=== PATIENT | male | born 1950 | race Caucasian/White ===

== ENCOUNTER → 2018-03-31 | Day surgery (SDC) | payer BC, MEDICARE ==
[2018-03-30 15:48] LABS: BASOPHILS % 0.5 % (0.0-1.0); EOSINOPHILS # (AUTO) 0.1 (0.0-0.4); HEMATOCRIT 46.2 % (38.2-49.6); HEMOGLOBIN 15.1 g/dL (14.0-18.0); LYMPHOCYTES # (AUTO) 1.8 (1.0-3.2); LYMPHOCYTES % 23.7 % (18.0-39.1); MEAN CORPUSCULAR HEMOGLOBIN 28.5 pg (28-32); MEAN CORPUSCULAR HGB CONC 32.7 g/dL (31-35); MEAN CORPUSCULAR VOLUME 87.2 fL (81-99); MONOCYTES # (AUTO) 0.7 (0.2-0.8); MONOCYTES % 9.7 % (4.4-11.3); NEUTROPHILS # (AUTO) 4.9 (2.1-6.9); NEUTROPHILS % 64.6 % (38.7-80.0); PLATELET COUNT 243 x10e3/uL (140-360)
[2018-03-30 16:04] LABS: ANION GAP 13.2 mmol/L (8-16); BLOOD UREA NITROGEN 14 mg/dL (7-26); BUN/CREATININE RATIO 16 (6-25); CALCIUM 8.9 mg/dL (8.4-10.2); CARBON DIOXIDE 27 mmol/L (22-29); CHLORIDE 98 mmol/L (98-107); EST GLOMERULAR FILTRATION RATE > 60 ML/MIN (60-); GLUCOSE 150 mg/dL (74-118); POTASSIUM 4.2 mmol/L (3.5-5.1); SODIUM 134 mmol/L (136-145)
--- NOTE | 2018-03-30 16:09 | Diagnostic Imaging Report ---
EXAMINATION: CHEST 2 VIEWS INDICATION: Enlarged prostate. Preop COMPARISON: None FINDINGS: TUBES and LINES: None. LUNGS: The lungs are hypoinflated. Mild chronic appearing changes in the lungs. There is no evidence of pneumonia or pulmonary edema. PLEURA: No pleural effusion or pneumothorax. HEART AND MEDIASTINUM: Tortuous thoracic aorta. Large hiatal hernia. The heart is normal in size. BONES AND SOFT TISSUES: No acute osseous lesion. Soft tissues are unremarkable. UPPER ABDOMEN: No free air under the diaphragm. IMPRESSION: Tortuous thoracic aorta. Large hiatal hernia. Signed by: Dr. Andrae Brantley M.D. on 03/30/2018 4:06 PM
[~2018-03-31] MED LIST: B COMPLETE1 EACH PO; BELLADONNA/OPIUM 60 MG SUPP PR ONE; CEFTRIAXONE SOD 1 GM VIAL ONE; DEXAMETHASONE SOD PHOS INJ 4 MG/ML VIAL ONE; FENTANYL CITRATE/PF 100MCG/2 ML INJ ONE; FEOSOL325 MG PO; GENTAMICIN 80MG/NS 100 ML 200 ML IV ONE; IOPAMIDOL 610MG/1ML 300 MG/ML VIAL IV ONE; JAYLIN PO; LIDOCAINE HCL 2% LOCAL INJ 5 ML SDV VIAL INJ ONE; METFORMIN HCL500 MG PO; MIDAZOLAM HCL 2 MG/2 ML VIAL ONE; ONDANSETRON HCL INJ 2 MG/ML VIAL ONE; PANTOPRAZOLE SO40 MG PO; PROPOFOL IV EMULSION 10 MG/ML 20 ML VIAL ONE; SEVOFLURANE INHAL SOLN 250 ML PEN BTL ONE; VALTREX500 MG PO
--- OUTSIDE RECORDS SUMMARY | 2018-03-31 06:26 | XMS REPORT ---
Author Author [facility] Address Unknown Phone Unavailable Care Team Providers Care Wire Puller Name Role Phone HU PAN Unavailable Unavailable Problems This patient has no known problems. Allergies, Adverse Reactions, Alerts This patient has no known allergies or adverse reactions. Medications This patient has no known medications. Results Test Description Test Time Test Comments Text Results Atomic Results Result Comments CHEST 2 VIEWS 2018-03-30 16:04:00 [place] [id number] Patient Name: MARYANN GIBSON MR #: [id number] : 1950 Age/Sex: 67/M Req #: [id number] Adm Physician: Ordered by: HU PAN MD Report #: [id number] Location: OR Room/Bed: Procedure: [id number] DX/CHEST 2 VIEWS Exam Date: 03/30/18 Exam Time: 1549 REPORT STATUS: Signed EXAMINATION: CHEST 2 VIEWS INDICATION: Enlarged prostate. Preop COMPARISON: None FINDINGS: TUBES and LINES: None. LUNGS: The lungs are hypoinflated. Mild chronic appearing changes in the lungs. There is no evidence of pneumonia or pulmonary edema. PLEURA: No pleural effusion or pneumothorax. HEART AND MEDIASTINUM: Tortuous thoracic aorta. Large hiatal hernia. The heart is normal in size. BONES AND SOFT TISSUES: No acute osseous lesion. Soft tissues are unremarkable. UPPER ABDOMEN: No free air under the diaphragm. IMPRESSION: Tortuous thoracic aorta. Large hiatal hernia. Signed by: Dr. Andrae Brantley M.D. on 03/30/2018 4:06 PM Dictated By: ANDRAE BRANTLEY MD, MD [id number] Transcribed By: DENIS on 03/30/18 1606 COPY TO: HU PAN MD
[2018-03-31 09:55] VITALS: BP 144/89
--- NOTE | 2018-04-01 04:57 | Operative Report ---
DATE OF PROCEDURE: March 31, 2018 PREOPERATIVE DIAGNOSES 1. Obstructive benign prostatic hypertrophy. 2. Incomplete bladder emptying. POSTOPERATIVE DIAGNOSES 1. Obstructive benign prostatic hypertrophy. 2. Incomplete bladder emptying. OPERATIONS PERFORMED 1. Cystourethroscopy with bilateral ureteral catheterization and retrograde ureteropyelography (separately performed for the incomplete bladder emptying). 2. Interpretation of retrograde ureteropyelography. 3. Cystourethroscopy with transurethral implantation of 4 UroLift implants. ANESTHESIA: General. COMPLICATIONS: None. CLINICAL SUMMARY: Gentry Delgadillo is a 67-year-old man with obstructive BPH. He has tried medications. He desires to proceed with surgery today as planned. He is aware of the risks of bleeding, infection, injury to adjacent structures, potential need for a transurethral resection of the prostate or other prostatic procedures later. He understood all these risks and elected to proceed. OPERATIVE PROCEDURE IN DETAIL: Informed consent was verified. Gentry Delgadillo was properly identified, taken to the operating room, placed on the cystoscopy table in supine position, and anesthesia was uneventfully begun. The patient was then carefully and gently repositioned in the dorsal lithotomy position with all pressure points well padded. His genitalia were prepped and draped in the usual sterile fashion. The 22.5-Albanian cystoscope sheath with the visual obturator in place was atraumatically inserted into the patient's urethra. It was guided down to the unremarkable distal urethra through the normal sphincteric region, through the prostate bed which was significant for bilobar BPH with an elevated median bar. Panendoscopy of the urinary bladder revealed mild trabeculations, but no tumors, no stones, and no diverticula. Normally positioned and configured ureteral orifices were identified. An 8-Albanian catheter was used cannulate each ureter and retrograde ureteropyelography was performed. Interpretation of retrograde ureteropyelography: Contrast was instilled in a retrograde fashion bilaterally. There were no tumors, no stones, and no diverticula. Unobstructed drainage was observed bilaterally fluoroscopically. The bladder was drained. The cystoscope was withdrawn. The 20-Albanian cystoscope sheath was inserted under direct vision atraumatically. We then placed 4 UroLift implants. Two implants were placed 1.5 cm distal to the bladder neck and positioned anterolaterally. Two additional implants were then placed anterolaterally at the level of the verumontanum. The patient's bladder was drained. The cystoscope was withdrawn. A belladonna and opium suppository was placed revealing a 40 g prostate, smooth, non-fluctuant without any nodules. The patient was then uneventfully reversed from anesthesia and taken to the recovery room in stable condition. Explicit postoperative instructions were given. We will plan to follow the patient up in the office, at which point in time we will perform uroflowmetry and bladder ultrasonography. Of concern is the patient did have a median bar and although we had a continuous anterior channel, should the patient not achieve an excellent result, then transurethral resection or vaporization of the prostate may be warranted. Job#: [id number] RTY cc:Jesse Montez DO
== END | disposition home or self-care (01) ==
LOC: OR 06:23
PROVIDERS: ATTEND Urology
DX: N40.1 Benign prostatic hyperplasia with lower urinary tract symptoms (principal); N13.8 Other obstructive and reflux uropathy; R39.14 Feeling of incomplete bladder emptying; E11.9 Type 2 diabetes mellitus without complications; Z79.84 Long term (current) use of oral hypoglycemic drugs; K21.9 Gastro-esophageal reflux disease without esophagitis; Z01.810 Encounter for preprocedural cardiovascular examination; Z01.812 Encounter for preprocedural laboratory examination; Z01.818 Encounter for other preprocedural examination
CPT/HCPCS: 52005; C9740; 36415; 71046; 74420; 80048; 82948; 85025; 93005; J0696; J1100; J1580; J2001; J2250; J2405; L8699

== ENCOUNTER 2018-04-01 06:50 | Emergency (ER) | payer MEDICARE, BC ==
[~2018-04-01] VITALS: Ht 177.8 cm; Wt 86.2 kg
[~2018-04-01 06:50] MED LIST changes: -BELLADONNA/OPIUM 60 MG SUPP PR ONE; -CEFTRIAXONE SOD 1 GM VIAL ONE; -DEXAMETHASONE SOD PHOS INJ 4 MG/ML VIAL ONE; -FENTANYL CITRATE/PF 100MCG/2 ML INJ ONE; -GENTAMICIN 80MG/NS 100 ML 200 ML IV ONE; -IOPAMIDOL 610MG/1ML 300 MG/ML VIAL IV ONE; -LIDOCAINE HCL 2% LOCAL INJ 5 ML SDV VIAL INJ ONE; -MIDAZOLAM HCL 2 MG/2 ML VIAL ONE; -ONDANSETRON HCL INJ 2 MG/ML VIAL ONE; -PROPOFOL IV EMULSION 10 MG/ML 20 ML VIAL ONE; -SEVOFLURANE INHAL SOLN 250 ML PEN BTL ONE
[2018-04-01 08:05] VITALS: BP 127/77
== END 2018-04-01 08:20 | disposition home or self-care (01) ==
LOC: ER 06:50
DX: R33.9 Retention of urine, unspecified (principal); N40.1 Benign prostatic hyperplasia with lower urinary tract symptoms
CPT/HCPCS: 51700; 99283

== ENCOUNTER 2018-08-08 20:09 | Inpatient (IN) | payer MEDICARE, BC ==
[~2018-08-08] VITALS: Ht 177.8 cm; Wt 88.9 kg
--- NOTE | 2018-08-08 21:09 | Diagnostic Imaging Report ---
EXAMINATION: Head CT without contrast. HISTORY:Arm numbness and visual loss. COMPARISON:None. TECHNIQUE: Multidetector axial images were obtained from the foramen magnum to the vertex without contrast. The images were reconstructed using brain and bone algorithms. Thin section brain images were reformatted into coronal and sagittal planes. Dose modulation, iterative reconstruction, and/or weight based adjustment of the mA/kV was utilized to reduce the radiation dose to as low as reasonably achievable. Intravenous contrast: None IMAGE QUALITY: Acceptable. FINDINGS: Skull/scalp: No lytic or blastic. lesions. No surgical changes. Parenchyma: Focal hypodensity in anterior limb of right internal capsule, left putamen represents age indeterminate lacunar infarcts. Old lacunar infarct in left thalamocapsular region. Nonspecific supratentorial white matter few, scattered hypodensity are likely related to small vessel ischemic changes. No acute hemorrhage, mass or acute major vascular territorial infarct. Arteries: No density suggestive of thrombosis. Atherosclerotic calcification in bilateral carotid siphon and V4 segment of the vertebral arteries. Dural sinuses: No abnormal density suggestive of thrombosis. Ventricles: Mild compensated dilatation due to volume loss. No hydrocephalus. Extra-axial spaces: No abnormal density. Brain volume: Generalized age-related cerebral volume loss. Craniocervical junction: No mass, Chiari malformation, or basilar invagination. Sella: No mass. Paranasal/mastoid sinuses: Imaged portions unremarkable. IMPRESSION: 1. Age indeterminate lacunar infarct in anterior limb of right internal capsule and left putamen. 2. Mild supratentorial white matter microvascular ischemic changes and old lacunar infarct in left thalamocapsular region. 3. Generalized age-related cerebral volume loss. Signed by: Dr. Iman Hurt M.D. on 08/08/2018 9:06 PM
[2018-08-08] MEDS ORDERED: ENOXAPARIN SOD INJ 60 MG/0.6 ML SYR SC STA (22:26)
[2018-08-08] MEDS ORDERED: PREDNISONE 20 MG TAB PO ONE (22:30)
[2018-08-09] VITALS (8 sets, daily range): BP systolic 126–148; BP diastolic 72–95
[2018-08-09] MEDS ORDERED: ENOXAPARIN SOD INJ 60 MG/0.6 ML SYR SC ONE (02:00)
[2018-08-09] MEDS ORDERED: PREDNISONE 20 MG TAB ONE (02:01)
[2018-08-09 02:52] LABS: BASOPHILS # (AUTO) 0.1 (0.0-0.1); BASOPHILS % 0.8 % (0.0-1.0); EOSINOPHILS # (AUTO) 0.2 (0.0-0.4); EOSINOPHILS % 3.1 % (0.0-6.0); HEMATOCRIT 47.5 % (38.2-49.6); HEMOGLOBIN 15.2 g/dL (14.0-18.0); LYMPHOCYTES # (AUTO) 1.7 (1.0-3.2); LYMPHOCYTES % 26.2 % (18.0-39.1); MEAN CORPUSCULAR HEMOGLOBIN 28.1 pg (28-32); MEAN CORPUSCULAR VOLUME 87.8 fL (81-99); MONOCYTES # (AUTO) 0.7 (0.2-0.8); MONOCYTES % 10.8 % (4.4-11.3); NEUTROPHILS # (AUTO) 3.8 (2.1-6.9); NEUTROPHILS % 58.3 % (38.7-80.0); PLATELET COUNT 249 x10e3/uL (140-360); RED BLOOD COUNT 5.41 x10e6/uL (4.3-5.7); RED CELL DISTRIBUTION WIDTH 13.1 % (11.7-14.4)
--- NOTE | 2018-08-09 03:00 | NUR ---
Patient transported via W/C from ER . Admission history obtained. Initial physical assessment conducted. Patient is AAO x 4. No complaints of pain. Respirations even and non-labored. Telemetry box in place. Patient oriented to room, call light and plan of care. Fall precautions implemented. Patient instructed to call for assistance when needed. Call light within reach.
[2018-08-09 03:13] LABS: ALANINE AMINOTRANSFERASE 29 IU/L (0-55); ALBUMIN 3.4 g/dL (3.5-5.0); ALBUMIN/GLOBULIN RATIO 0.9 (0.8-2.0); ALKALINE PHOSPHATASE 87 IU/L (40-150); BLOOD UREA NITROGEN 16 mg/dL (7-26); BUN/CREATININE RATIO 17 (6-25); CALCIUM 9.7 mg/dL (8.4-10.2); CARBON DIOXIDE 29 mmol/L (22-29); CHLORIDE 100 mmol/L (98-107); CREATININE, SERUM 0.92 mg/dL (0.72-1.25); EST GLOMERULAR FILTRATION RATE > 60 ML/MIN (60-); GLUCOSE 152 mg/dL (74-118); SODIUM 136 mmol/L (136-145)
[2018-08-09 03:15] LABS: CREATINE KINASE 45 IU/L (30-200)
[2018-08-09] MEDS ORDERED: DEXTROSE 50% SYRINGE 50 ML IV PRN (03:45)
[2018-08-09 07:53] LABS: ALANINE AMINOTRANSFERASE 27 IU/L (0-55); ALBUMIN 3.4 g/dL (3.5-5.0); ALBUMIN/GLOBULIN RATIO 0.9 (0.8-2.0); ALKALINE PHOSPHATASE 81 IU/L (40-150); ANION GAP 12.5 mmol/L (8-16); BLOOD UREA NITROGEN 16 mg/dL (7-26); BUN/CREATININE RATIO 19 (6-25); CALCIUM 9.5 mg/dL (8.4-10.2); CARBON DIOXIDE 24 mmol/L (22-29); CHLORIDE 103 mmol/L (98-107); CREATINE KINASE 33 IU/L (30-200); CREATININE, SERUM 0.86 mg/dL (0.72-1.25); EST GLOMERULAR FILTRATION RATE > 60 ML/MIN (60-); GLUCOSE 228 mg/dL (74-118); LIPASE 35 U/L (8-78); POTASSIUM 4.5 mmol/L (3.5-5.1); SODIUM 135 mmol/L (136-145)
[2018-08-09 07:59] LABS: BASOPHILS % 0.6 % (0.0-1.0); EOSINOPHILS % 0.3 % (0.0-6.0); HEMATOCRIT 47.7 % (38.2-49.6); HEMOGLOBIN 15.6 g/dL (14.0-18.0); LYMPHOCYTES % 13.6 % (18.0-39.1); MEAN CORPUSCULAR HEMOGLOBIN 28.1 pg (28-32); MEAN CORPUSCULAR HGB CONC 32.7 g/dL (31-35); MEAN CORPUSCULAR VOLUME 85.8 fL (81-99); MONOCYTES # (AUTO) 0.2 (0.2-0.8); MONOCYTES % 3.1 % (4.4-11.3); NEUTROPHILS # (AUTO) 5.8 (2.1-6.9); NEUTROPHILS % 81.7 % (38.7-80.0); PLATELET COUNT 258 x10e3/uL (140-360); RED BLOOD COUNT 5.56 x10e6/uL (4.3-5.7)
[2018-08-09] MEDS: INSULIN REGULAR, HUMAN 100 UNIT/1 ML 3ML VIAL SQ SCH ×4 (08:50→21:00)
[2018-08-09] MEDS ORDERED: ACETAMINOPHEN 325 MG TAB PO PRN (09:00)
[2018-08-09] MEDS ORDERED: HYDRALAZINE HCL 20 MG/ML VIAL IV PRN (09:00)
[2018-08-09] MEDS ORDERED: ONDANSETRON HCL INJ 2MG/ML 2ML 2 MG/ML VIAL IV PRN (09:00)
[2018-08-09 09:04] LABS: CHOL/HDL RATIO 3.6 (3.9-4.7)
[2018-08-09 09:24] LABS: THYROID STIMULATING HORMONE 4.467 uIU/mL (0.350-4.940)
--- NOTE | 2018-08-09 09:30 | NUR ---
CM SPOKE TO PATIENT AT BEDSIDE REGARDING IMM LETTER. IMM LETTER GIVEN WITH EXPLANATION BASED ON ANTICIPATED DISCHARGE DATE. ORIGINAL SIGNED AND PLACED IN CHART; COPY OF ORIGINAL DOCUMENT GIVEN TO PATIENT AT BEDSIDE AND PLACED IN CARE TRANSITION FOLDER. CM CONTACT INFORMATION GIVEN TO PATIENT FOR ANY NEEDS OR CONCERNS. PATIENT WITH NO FURTHER QUESTIONS.
[2018-08-09] MEDS ORDERED: ENOXAPARIN INJ 80 MG/0.8 ML SYR SC SCH (10:30)
--- NOTE | 2018-08-09 12:18 | Diagnostic Imaging Report ---
History: Loss of vision, arm numbness Comparison studies: CT head 08/09/2015 Technique: Sagittal T2; axial DWI, FLAIR, MPGR, T1, Coronal FLAIR. Intravenous contrast: None Findings: Scalp: Normal in signal . No masses . Bone marrow: Normal in signal intensity. Extra-axial: No masses, no fluid collections. Brain sulci: Mildly prominent. Ventricles: Normal in size . No hydrocephalus . Parenchyma: Scattered small T-2/flair hyperintensities of the periventricular and deep white matter. Small T-2/flair hyperintensity at the left angelita without mass effect. Chronic right striatocapsular and left thalamocapsular lacunar infarct No masses, hemorrhage, acute or chronic vascular insults. Suprasellar region: No abnormalities. Craniocervical junction: No abnormalities. Patent foramen magnum. No Chiari one malformation. Vessels: Normal flow-voids in the arteries and sinuses. Bilateral cataract surgery changes. IMPRESSION: 1. No acute abnormalities. 2. Mild chronic microvascular ischemic changes of the white matter Signed by: DR Alex Sky M.D. on 08/09/2018 12:14 PM
[2018-08-09] MEDS: FAMOTIDINE 20 MG TAB PO SCH (16:10)
[2018-08-09 17:39] LABS: CREATINE KINASE 22 IU/L (30-200)
[2018-08-09] MEDS: JAYLIN PO SCH (21:00)
[2018-08-09] MEDS ORDERED: ATORVASTATIN 20 MG TAB PO SCH ×2 (21:00)
[2018-08-09] MEDS ORDERED: JAYLIN PO SCH (21:00)
[2018-08-09] MEDS: ATORVASTATIN 40 MG TAB PO SCH (21:35)
--- NOTE | 2018-08-09 22:05 | Diagnostic Imaging Report ---
CTA NECK, CTA BRAIN HISTORY: TIA COMPARISON: Head CT 08/08/2018, MRI of the brain 08/09/2018 TECHNIQUE: CTA of the head and neck was performed with intravenous iodine based contrast. Coronal, sagittal, and 3-D reformations were created. One or more of the following dose reduction techniques were used: Automated exposure control, adjustment of the mA and/or kV according to patient size, and/or utilization of iterative reconstruction technique. DISCUSSION: If present, any cervical carotid stenosis will be measured as a percentage relative to the [facility] [place] artery distal to the stenosis (NASCET). CERVICAL CTA: The innominate and left common carotid arteries have a common origin, which is a normal variant. Right Carotid: Moderate calcified plaque at the right carotid bulb causes less than 50% focal stenosis in the proximal right internal carotid artery. Left Carotid: Moderate calcified plaque at the left carotid bulb causes greater than 70% focal stenosis in the proximal left internal carotid artery. Right vertebral artery: The right vertebral artery is diminutive throughout with focal occlusion at the V3 segment. Left vertebral artery: There is at least mild focal stenosis at the left vertebral artery ostium. Otherwise, patent and without abnormality. INTRACRANIAL CTA: Carotid arteries: Bilateral carotid siphon calcifications are present without significant stenosis. No abnormalities in the A1 or M1 segments. Vertebrobasilar Circulation: Right vertebral artery: There is reconstitution of the V4 segment. Calcified plaque of the proximal V4 segment is suspected. Both posterior inferior cerebellar arteries are grossly patent. Left vertebral artery: Patent, no abnormalities. Basilar artery: Patent, no abnormalities. Posterior cerebral arteries: Patent, no abnormalities. Normal Variants: ACom: Patent. PComs: Patent on the left. Persistent circulation on the right. Vertebral arteries: Left dominant. The major dural venous sinuses are grossly patent. Additional findings: Both ocular lenses are thinned. There is mild dependent atelectasis in the upper lungs. Coronary artery calcifications are present. The there are mild degenerative changes throughout the spine. Pulmonary artery is prominent. IMPRESSION: 1. Moderate left carotid bulb calcified plaque causes greater than 70% focal stenosis in the proximal left internal carotid artery. 2. Moderate right carotid bulb calcified plaque without significant stenosis. 3. 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 There is reconstitution of the right distal V4 segment. Calcified plaque of the right proximal V4 segment is suspected. The cervical right vertebral artery is diminutive throughout, proximal to this occlusion. 4. Bilateral carotid siphon calcifications without significant stenosis. 5. At least mild focal stenosis at the left vertebral artery ostium. Signed by: Dr. Tyree Copeland M.D. on 08/09/2018 10:01 PM
--- NOTE | 2018-08-09 22:58 | Consultation ---
DATE OF CONSULTATION: 08/09/2018 Neurology Consult Note HISTORY OF PRESENT ILLNESS: Mr. Delgadillo is a 67-year-old [id number]-[id number] man with past medical history significant for hyperlipidemia, not on medication, and diabetes mellitus type 2, admitted to [facility] on August 08, 2018, with amaurosis fugax. At approximately 1930 hours on the day of admission, the patient lost sight in his left eye. Mr. Delgadillo further describes his vision loss as a black shade being drawn down over his eye. The vision loss lasted for a few minutes, then spontaneously cleared. However, the symptoms occurred again, lasted a few minutes, then spontaneously resolved. In total, Mr. Delgadillo reports his symptoms occurred over a period of less than 10 minutes. After loss of vision in his left eye for the second time, Mr. Delgadillo took his blood pressure. It was found to be 179/117 mmHg. Concerned, the patient proceeded to the emergency center at [facility] for further evaluation. Mr. Delgadillo does not report other symptoms associated with the vision loss. Specifically, he does not report dysarthria, aphasia, facial weakness, hemiparesis, hemihypesthesia, poor balance, impairment of gait, dizziness, or confusion. Upon arrival in the emergency center, the patient was afebrile with a blood pressure of 157/98 mmHg and a pulse of 84 beats per minute. The findings on the patient's neurological examination are not available for review at this time. While in the emergency center, a CT of the brain without contrast was performed. This study did not reveal evidence of recent large territorial ischemia or hemorrhage. Mr. Delgadillo was admitted to [facility] for further evaluation and treatment of his symptoms. Mr. Delgadillo has not experienced similar symptoms previously. He does not take anti-platelet or anticoagulant medication on a regular basis. REVIEW OF SYSTEMS: Transient loss of vision in the left eye. PAST MEDICAL HISTORY: Hyperlipidemia (not on medication), diabetes mellitus type 2, benign prostatic hypertrophy. PAST SURGICAL HISTORY: The patient had a UroLift placed in March 2018, bilateral cataract removal. PAST HOSPITALIZATIONS: Surgeries/procedures as listed, anemia requiring blood transfusion. FAMILY MEDICAL HISTORY: The patient's father is recently . He had a history of strokes as well as Alzheimer disease. The patient's mother is alive. She has diabetes mellitus. Additionally, the patient's mother has experienced multiple falls. Mr. Delgadillo has two brothers, both of whom are alive. One brother has diabetes mellitus and heart disease. The second brother has diabetes mellitus as well. Mr. Delgadillo has one child, a son, who is alive. He has hypertension. SOCIAL HISTORY: Mr. Delgadillo is . 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 The patient does not report current or prior tobacco or recreational drug use. Mr. Delgadillo will drink an occasional beer. HOME MEDICATIONS: Metformin 500 mg by mouth twice daily, Manisha 0.5 mg by mouth at bedtime daily, ferrous sulfate 325 mg by mouth twice daily, valacyclovir 500 mg by mouth as needed. ALLERGIES: NO KNOWN DRUG ALLERGIES. NO KNOWN FOOD ALLERGIES. NO KNOWN ALLERGIES TO LATEX. NO KNOWN ALLERGIES TO IODINE OR OTHER CONTRAST MATERIALS. PHYSICAL EXAMINATION: VITAL SIGNS: Height 70 inches, weight 190 pounds, BMI 27.3 kg/m2, blood pressure 126/79 mmHg, pulse 91 beats per minute, respiratory rate 20 breaths per minute, and oxygen saturation 94% on room air. GENERAL: The patient is awake and alert, does not appear distressed. Overweight. HEENT: Normocephalic, atraumatic. Pupils are surgical. Moist mucous membranes. NECK: Supple. No appreciable thyromegaly. No appreciable carotid bruits. CARDIOVASCULAR: S1, S2, regular rate and rhythm. No murmurs, rubs, or gallops. RESPIRATORY: Clear to auscultation bilaterally. No wheezes, rhonchi, or rales. EXTREMITIES: The skin is warm and dry. No clubbing, cyanosis, or edema. The posterior tibial and dorsalis pedis pulses are 2+ and symmetric. SKIN: No rashes or lesions. NEUROLOGIC: Memory/Attention: The patient is awake and alert, oriented to person, place, time, and situation. Cranial Nerves: Cranial nerve I-not tested. Cranial nerves II, III, IV, and -visual pompa are full. Pupils are surgical. Extraocular movements intact. No nystagmus. Cranial nerve V-sensation to light touch and pinprick is intact in the bilateral V1 through V3 distributions. Strength in the temporalis and masseter muscles are within normal limits. Cranial nerve VII-the face is symmetric as are all facial movements. Strength is within normal limits. Cranial nerve VIII-hearing is diminished to finger rub bilaterally. Cranial nerves IX, X-the soft palate elevates equally and symmetrically. Cranial nerve XI-normal strength of the bilateral sternocleidomastoid and trapezius muscles. Cranial nerve XII-the tongue protrudes midline and moves symmetrically from ssov-tx-ljte. Strength: Bulk is normal. Strength is 5/5 in the bilateral deltoids, biceps, triceps, wrist flexors and extensors, finger flexors and extensors, intrinsic hand muscles, hip flexors, knee flexors and extensors, ankle dorsiflexion and plantar flexion, and intrinsic foot muscles. Tone is normal. DTRs: Deep tendon reflexes are 1+ and symmetric at the triceps, biceps, brachioradialis, patellas, and Achilles. Plantar responses are flexor bilaterally. Sensation: Sensation is intact to light touch and pinprick in both arms and both legs. Cerebellar: Lsajvn-gjtb-ileazr and heel-cox movements are intact without dysmetria or other impairment. Gait: Deferred. Speech: Spontaneous speech is normal without appreciable dysarthria or aphasia. Repetition is intact. Involuntary Movements: None. Pronator Drift: None. LABORATORY DATA: The most recent comprehensive metabolic panel is significant for sodium of 135, glucose of 228, albumin of 3.4, and globulin of 3.7. Cardiac enzymes are negative x3. Lipase 35. Hemoglobin A1c 7.7, total cholesterol 224, triglycerides 249, LDL cholesterol 111, HDL cholesterol 63. TSH 4.467. Free T4 of 1.00. The CBC with differential and platelets reveals a white blood cell count of 7.06 with a left shift with 81.7% neutrophils, 13.6% lymphocytes, 3.1% monocytes, 0.3% eosinophils, and 0.6% basophils. The hemoglobin and hematocrit are 15.6 and 47.7, respectively. The platelet count is 258. Erythrocyte sedimentation rate is 8. DIAGNOSTIC STUDIES: An electrocardiogram cannot be found. CT of the brain without contrast of 08/08/2018: On my review, there is no evidence of recent large territorial ischemia, hemorrhage, mass, or mass effect. There are chronic lacunar infarcts in the anterior limb of the right internal capsule as well as the left thalamocapsular region. Cerebral volumes are appropriate for age. There are findings compatible with rasr-nh-yokjuaxl chronic small-vessel ischemic disease. Echocardiogram of 08/09/2018: Ejection fraction 55% to 60%. No significant valvular abnormalities. Bilateral carotid artery ultrasound with Doppler of 08/09/2018: There is atherosclerosis without hemodynamically significant stenosis at the bilateral carotid bulbs, bilateral carotid bifurcations, and right internal carotid artery. There is atherosclerosis with possible hemodynamically significant stenosis at the left internal carotid artery with near occlusion of the proximal internal carotid artery. Flow is antegrade in the bilateral vertebral arteries. MRI of the brain without contrast of 08/09/2018: On my review, there is no evidence of recent large territorial ischemia, hemorrhage, mass, or mass effect. Remote lacunar infarcts are seen in the right striatocapsular and left thalamocapsular regions. Cerebral volumes are appropriate for age. There are multiple scattered T2/FLAIR hyperintense foci of the supratentorial and infratentorial deep white matter compatible with moderate chronic small vessel ischemic disease. ASSESSMENT AND PLAN: Mr. Delgadillo is a 67-year-old ykryc-ukws-nfrlxapq man with past medical history significant for hyperlipidemia, diabetes mellitus type 2, and two prior asymptomatic strokes, admitted to [facility] with transient ischemic attacks in the left central retinal artery distribution (amaurosis fugax). At present, the patient's neurological examination is nonfocal. The patient's laboratory data and other diagnostic studies have been reviewed. RECOMMENDATIONS: Are as follows: 1. A CTA of the brain and neck will be ordered to better evaluate possible critical stenosis of the left internal carotid artery. If Mr. Delgadillo is found to have greater than 70% stenosis in this artery, Dr. Palencia will be consulted for a left carotid endarterectomy. 2. Aspirin 325 mg by mouth daily will be prescribed for stroke prophylaxis. 3. Allow permissive hypertension due to possible critical stenosis of the left internal carotid artery. Monitor vital signs per unit protocol. 4. The patient's goal total cholesterol is less than 200 with an LDL of less than 70. Treatment with atorvastatin will be continued, but the dose will be increased to 80 mg by mouth at bedtime daily. A lipid panel will need to be rechecked in 8 weeks. 5. The patient's goal hemoglobin A1c is less than 7.0. Mr. Delgadillo' hemoglobin A1c is 7.7. Defer further treatment of diabetes mellitus to the Primary Service. Mr. Delgadillo is on sliding scale insulin per protocol. Tight glycemic control is recommended, while the patient is in the hospital. 6. Speech and Physical Therapy consultations will be deferred as the patient has no current neurological deficits. 7. GI prophylaxis with Pepcid 20 mg by mouth twice daily with meals. DVT prophylaxis with Lovenox. The dose will be decreased from 80 mg subcutaneously twice daily to 40 mg subcutaneously daily. 8. Defer treatment of the remaining medical comorbidities to the Primary and Other Services following the patient. Thank you for this consultation. I will continue to follow the patient while he remains in the hospital. TIME SPENT: 50 minutes. Randi Pineda MD CP/MODL /[id number] MTDD
[2018-08-10] VITALS (7 sets, daily range): BP systolic 97–136; BP diastolic 62–87
[2018-08-10] MEDS ORDERED: SODIUM CHLORIDE 0.9% 100 ML 100 ML ONE (00:59)
[2018-08-10] MEDS ORDERED: IOPAMIDOL 370 MG/ML 200 ML INFUS..BTL INJ ONE (00:59)
[2018-08-10 06:08] LABS: BASOPHILS # (AUTO) 0.1 (0.0-0.1); BASOPHILS % 0.5 % (0.0-1.0); EOSINOPHILS % 0.2 % (0.0-6.0); HEMATOCRIT 50.1 % (38.2-49.6); HEMOGLOBIN 16.2 g/dL (14.0-18.0); LYMPHOCYTES % 7.8 % (18.0-39.1); MEAN CORPUSCULAR HGB CONC 32.3 g/dL (31-35); MEAN CORPUSCULAR VOLUME 86.5 fL (81-99); MONOCYTES # (AUTO) 1.2 (0.2-0.8); MONOCYTES % 9.1 % (4.4-11.3); NEUTROPHILS # (AUTO) 10.9 (2.1-6.9); NEUTROPHILS % 81.7 % (38.7-80.0); PLATELET COUNT 295 x10e3/uL (140-360); RED BLOOD COUNT 5.79 x10e6/uL (4.3-5.7); RED CELL DISTRIBUTION WIDTH 13.1 % (11.7-14.4)
[2018-08-10 06:36] LABS: ANION GAP 12.5 mmol/L (8-16); BLOOD UREA NITROGEN 23 mg/dL (7-26); BUN/CREATININE RATIO 22 (6-25); CALCIUM 10.2 mg/dL (8.4-10.2); CARBON DIOXIDE 21 mmol/L (22-29); CHLORIDE 106 mmol/L (98-107); CREATININE, SERUM 1.06 mg/dL (0.72-1.25); EST GLOMERULAR FILTRATION RATE > 60 ML/MIN (60-); GLUCOSE 250 mg/dL (74-118); MAGNESIUM 2.3 MG/DL (1.3-2.1); POTASSIUM 4.5 mmol/L (3.5-5.1); SODIUM 135 mmol/L (136-145)
[2018-08-10] MEDS ORDERED: ONDANSETRON HCL 4 MG ORAL DISINTEGRATING TAB PO PRN (06:45)
[2018-08-10] MEDS: ENOXAPARIN SOD INJ 40 MG/0.4 ML SYR SC SCH (08:22)
[2018-08-10] MEDS: ASPIRIN 325 MG TAB EC PO SCH (08:22)
[2018-08-10] MEDS: FAMOTIDINE 20 MG TAB PO SCH ×2 (08:22→17:01)
[2018-08-10] MEDS ORDERED: ENOXAPARIN INJ 80 MG/0.8 ML SYR SC SCH (09:00)
[2018-08-10] MEDS: INSULIN REGULAR, HUMAN 100 UNIT/1 ML 3ML VIAL SQ SCH ×4 (09:07→21:00)
--- NOTE | 2018-08-10 10:30 | NUR ---
PLACED CALL TO ANSWERING SERVICE IN REGARD TO NEW CONSULT. SPOKE TO DIAMOND AND ASKED FOR RETURN CALL.
[2018-08-10] MEDS ORDERED: SODIUM CHLORIDE 0.9% 250ML 250 ML IV ONE (14:00)
[2018-08-10 15:18] LABS: ALANINE AMINOTRANSFERASE 33 IU/L (0-55); ALBUMIN 3.7 g/dL (3.5-5.0); ALBUMIN/GLOBULIN RATIO 0.8 (0.8-2.0); ALKALINE PHOSPHATASE 77 IU/L (40-150); ANION GAP 14.3 mmol/L (8-16); BLOOD UREA NITROGEN 25 mg/dL (7-26); BUN/CREATININE RATIO 25 (6-25); CALCIUM 9.9 mg/dL (8.4-10.2); CARBON DIOXIDE 20 mmol/L (22-29); CHLORIDE 105 mmol/L (98-107); CREATININE, SERUM 1.01 mg/dL (0.72-1.25); EST GLOMERULAR FILTRATION RATE > 60 ML/MIN (60-); GLUCOSE 152 mg/dL (74-118); POTASSIUM 4.3 mmol/L (3.5-5.1); SODIUM 135 mmol/L (136-145)
[2018-08-10 15:50] LABS: BILIRUBIN,URINE NEGATIVE (NEGATIVE); CLARITY,URINE SL CLOUDY (CLEAR); COLOR,URINE STRAW (YELLOW); KETONES,URINE NEGATIVE (NEGATIVE); LEUKOCYTE ESTERASE ,URINE NEGATIVE (NEGATIVE); NITRITE,URINE NEGATIVE (NEGATIVE); PROTEIN,URINE DIPSTICK NEGATIVE (NEGATIVE); URINE UROBILINOGEN 0.2 mg/dL (0.2 - 1)
[2018-08-10 16:00] LABS: AMORPHOUS SEDIMENT,URINE FEW (FEW); BACTERIA,URINE MANY /HPF; MUCUS,URINE MANY (RARE)
--- NOTE | 2018-08-10 18:14 | Diagnostic Imaging Report ---
EXAMINATION: CHEST 2 VIEWS INDICATION: TIA ^PRE-OP ^[id number] ^1750 COMPARISON: Chest x-ray 03/30/2018 FINDINGS: PA and lateral views TUBES and LINES: None. LUNGS: There is finding of the diaphragms consistent with COPD. The lung volumes are diminished and stable. There is no evidence of pneumonia or pulmonary edema. PLEURA: No pleural effusion or pneumothorax. HEART AND MEDIASTINUM: Large hiatal hernia with an air-fluid level is redemonstrated. Stable aortic ectasia. BONES AND SOFT TISSUES: No focal osseous lesions. Diffuse demineralization. Stable degenerative changes of the spine. Soft tissues are unremarkable. UPPER ABDOMEN: No free air under the diaphragm. IMPRESSION: Low lung volumes with flattening of the diaphragms suggestive of small airways disease. Large hiatal hernia. Signed by: Dr. Jeni Iyer MD on 08/10/2018 6:11 PM
[2018-08-10] MEDS: JAYLIN PO SCH (21:00)
[2018-08-10] MEDS: ATORVASTATIN 40 MG TAB PO SCH (21:13)
[2018-08-10] MEDS: TEMAZEPAM 15 MG CAP PO PRN (21:14)
[2018-08-11] VITALS (15 sets, daily range): BP systolic 91–122; BP diastolic 63–75
[2018-08-11 05:11] LABS: BASOPHILS # (AUTO) 0.1 (0.0-0.1); BASOPHILS % 0.7 % (0.0-1.0); EOSINOPHILS # (AUTO) 0.2 (0.0-0.4); EOSINOPHILS % 2.3 % (0.0-6.0); HEMATOCRIT 49.3 % (38.2-49.6); HEMOGLOBIN 15.8 g/dL (14.0-18.0); LYMPHOCYTES # (AUTO) 1.9 (1.0-3.2); LYMPHOCYTES % 17.7 % (18.0-39.1); MEAN CORPUSCULAR HEMOGLOBIN 27.9 pg (28-32); MEAN CORPUSCULAR VOLUME 86.9 fL (81-99); MONOCYTES # (AUTO) 1.2 (0.2-0.8); MONOCYTES % 11.6 % (4.4-11.3); NEUTROPHILS # (AUTO) 7.2 (2.1-6.9); NEUTROPHILS % 67.1 % (38.7-80.0); PLATELET COUNT 251 x10e3/uL (140-360); RED BLOOD COUNT 5.67 x10e6/uL (4.3-5.7); RED CELL DISTRIBUTION WIDTH 13.2 % (11.7-14.4)
[2018-08-11 05:28] LABS: ANION GAP 9.9 mmol/L (8-16); BLOOD UREA NITROGEN 25 mg/dL (7-26); BUN/CREATININE RATIO 24 (6-25); CALCIUM 8.7 mg/dL (8.4-10.2); CARBON DIOXIDE 25 mmol/L (22-29); CHLORIDE 107 mmol/L (98-107); CREATININE, SERUM 1.04 mg/dL (0.72-1.25); EST GLOMERULAR FILTRATION RATE > 60 ML/MIN (60-); GLUCOSE 138 mg/dL (74-118); POTASSIUM 3.9 mmol/L (3.5-5.1); SODIUM 138 mmol/L (136-145)
[2018-08-11 06:32] LABS: INR 0.83; PROTHROMBIN TIME 11.9 seconds (11.9-14.5)
[2018-08-11 06:33] LABS: PARTIAL THROMBOPLASTIN TIME 27.1 seconds (23.8-35.5)
[2018-08-11] MEDS: INSULIN REGULAR, HUMAN 100 UNIT/1 ML 3ML VIAL SQ SCH ×3 (07:30→17:57)
[2018-08-11] MEDS: FAMOTIDINE 20 MG TAB PO SCH ×2 (07:30→16:46)
[2018-08-11] MEDS ORDERED: HEPARIN SOD/SOD CHLORIDE 1,000 ML ONE (08:36)
[2018-08-11] MEDS: ASPIRIN 325 MG TAB EC PO SCH (09:00)
[2018-08-11] MEDS: ENOXAPARIN SOD INJ 40 MG/0.4 ML SYR SC SCH (09:00)
[2018-08-11] MEDS ORDERED: PROTAMINE SULFATE 10 MG/ML 5 ML VIAL ONE (10:46)
[2018-08-11] MEDS ORDERED: LIDOCAINE HCL 1% 2 ML AMP ONE (10:46)
[2018-08-11] MEDS ORDERED: SODIUM CHLORIDE 0.9% 500ML 500 ML ONE (10:47)
[2018-08-11] MEDS ORDERED: HEPARIN SOD (PORCINE) 1000 UNIT/ML 30ML ONE (10:47)
[2018-08-11] MEDS ORDERED: MUPIROCIN 2% OINT 22 GM TUBE ONE (10:47)
[2018-08-11] MEDS ORDERED: GELATIN SPONGE 12-7MM ONE (10:47)
[2018-08-11] MEDS ORDERED: THROMBIN FOR SOLN 5,000 UNIT VIAL ONE ×2 (10:47→11:03)
--- NOTE | 2018-08-11 10:52 | NUR ---
Patient left the floor to go the OR, patient's family is also present
--- NOTE | 2018-08-11 13:23 | NUR ---
Report called to ICU nurse that will be receiving patient. Patient is go to go ICU following procedure by Dr. Renee.
[2018-08-11] MEDS ORDERED: FENTANYL CITRATE/PF 100MCG/2 ML INJ ONE ×2 (14:46→18:24)
[2018-08-11 14:57] LABS: BASOPHILS # (AUTO) 0.1 (0.0-0.1); BASOPHILS % 0.5 % (0.0-1.0); EOSINOPHILS # (AUTO) 0.3 (0.0-0.4); EOSINOPHILS % 2.5 % (0.0-6.0); HEMATOCRIT 46.3 % (38.2-49.6); HEMOGLOBIN 14.8 g/dL (14.0-18.0); LYMPHOCYTES # (AUTO) 2.4 (1.0-3.2); LYMPHOCYTES % 20.8 % (18.0-39.1); MEAN CORPUSCULAR HEMOGLOBIN 28.1 pg (28-32); MEAN CORPUSCULAR VOLUME 87.9 fL (81-99); MONOCYTES # (AUTO) 1.2 (0.2-0.8); MONOCYTES % 10.1 % (4.4-11.3); NEUTROPHILS # (AUTO) 7.4 (2.1-6.9); NEUTROPHILS % 64.9 % (38.7-80.0); PLATELET COUNT 247 x10e3/uL (140-360); RED BLOOD COUNT 5.27 x10e6/uL (4.3-5.7); RED CELL DISTRIBUTION WIDTH 13.2 % (11.7-14.4)
[2018-08-11 15:20] LABS: ALANINE AMINOTRANSFERASE 50 IU/L (0-55); ALBUMIN 2.8 g/dL (3.5-5.0); ALBUMIN/GLOBULIN RATIO 0.8 (0.8-2.0); ALKALINE PHOSPHATASE 67 IU/L (40-150); ANION GAP 10.9 mmol/L (8-16); BLOOD UREA NITROGEN 21 mg/dL (7-26); BUN/CREATININE RATIO 24 (6-25); CALCIUM 8.1 mg/dL (8.4-10.2); CARBON DIOXIDE 23 mmol/L (22-29); CHLORIDE 110 mmol/L (98-107); CREATININE, SERUM 0.86 mg/dL (0.72-1.25); EST GLOMERULAR FILTRATION RATE > 60 ML/MIN (60-); GLUCOSE 153 mg/dL (74-118); POTASSIUM 3.9 mmol/L (3.5-5.1); SODIUM 140 mmol/L (136-145)
[2018-08-11] MEDS ORDERED: MORPHINE SULFATE INJ 4 MG/ML INJ 1ML IV PRN ×2 (16:30→20:30)
[2018-08-11] MEDS ORDERED: ONDANSETRON HCL 4 MG ORAL DISINTEGRATING TAB PO PRN (16:30)
[2018-08-11] MEDS ORDERED: LABETALOL HCL 20 MG/4 ML SYRINGE IV PRN (16:30)
[2018-08-11] MEDS ORDERED: HYDROCODONE/APAP 5MG-325MG TAB PO PRN (16:30)
[2018-08-11] MEDS ORDERED: MIDAZOLAM HCL 2 MG/2 ML VIAL ONE (18:24)
[2018-08-11] MEDS: MORPHINE SULFATE INJ 4 MG/ML INJ 1ML IV PRN (20:25)
[2018-08-11] MEDS: SODIUM CHLORIDE 0.9% 1000ML 1,000 ML IV SCH (20:36)
[2018-08-11] MEDS: JAYLIN PO SCH (20:37)
[2018-08-11] MEDS: ATORVASTATIN 40 MG TAB PO SCH (20:37)
[2018-08-11] MEDS: CEFAZOLIN SOD 1 GM/NS 50ML 50 ML IV ONE ×2 (20:38→21:01)
[2018-08-11] MEDS: HYDROCODONE/APAP 5MG-325MG TAB PO PRN (21:29)
--- NOTE | 2018-08-11 23:39 | Consultation ---
DATE OF CONSULTATION: Pulmonary Critical Care Consultation. CHIEF COMPLAINT: Amaurosis fugax, carotid artery stenosis, and recent carotid endarterectomy. HISTORY OF PRESENT ILLNESS: The patient is a 67-year-old man. He has a history of type 2 diabetes. Apparently, he was watching TV when he lost vision in his left eye transiently. He is subsequently admitted to the hospital and started on anti-platelet medication. Further workup showed severe carotid artery stenosis. He went for carotid endarterectomy. A shunt was used and a Dacron graft was placed. The patient tolerated the procedure well without any difficulties. He is now in the intensive care unit and extubated. He reports no problems. PAST SURGICAL HISTORY: 1. Recent carotid endarterectomy. 2. Cataract surgery. PAST MEDICAL HISTORY: 1. Diabetes. 2. Anemia. 3. Benign prostatic hypertrophy. SOCIAL HISTORY: The patient occasionally uses alcohol. He is not a smoker. ALLERGIES: NO KNOWN DRUG ALLERGIES. REVIEW OF SYSTEMS: VITAL SIGNS: The patient is afebrile. The vital signs are stable. HEENT: The patient denies any headache. He has no fever. He is not complaining of any further visual problems. He does have some pain along the incision site. He is not having any chest discomfort. He has no difficulty breathing. He has no cough. He has no nausea or vomiting. He has no leg edema. PHYSICAL EXAMINATION: VITAL SIGNS: The patient is afebrile. The vital signs are stable. HEENT: Shows no facial swelling or erythema. There is a bandage over the left carotid artery site. CARDIAC: Reveals regular rate and rhythm with normal S1 and S2. There are no murmurs or rubs. LUNGS: Auscultation of lungs show clear breath sounds bilaterally. There is no wheezing. ABDOMEN: Soft, nontender. There is no rebound or guarding. EXTREMITIES: Show no leg edema or calf tenderness. There is no cyanosis or clubbing. SKIN: Shows no rashes. IMPRESSION: 1. Recent carotid endarterectomy. 2. Amaurosis fugax. 3. Diabetes. 4. Hypertension. PLAN: 1. Continue current postoperative care. 2. Monitor blood sugars and blood pressure closely. 3. Wound care. Butch Staton MD [facility]/MODL /[id number]
[2018-08-12] VITALS (25 sets, daily range): BP systolic 11–157; BP diastolic 52–107
[2018-08-12] MEDS: MORPHINE SULFATE INJ 4 MG/ML INJ 1ML IV PRN ×2 (00:19→03:55)
[2018-08-12] MEDS: TEMAZEPAM 15 MG CAP PO PRN ×2 (00:26→23:35)
--- NOTE | 2018-08-12 00:45 | Operative Report ---
DATE OF PROCEDURE: 08/11/2018 SURGEON: Gentry Palencia MD RAIL OPERATIONS CONTROLLER: Vance. PREOPERATIVE DIAGNOSES: 1. Severe left carotid stenosis. 2. Recurrent transient ischemic attacks. POSTOPERATIVE DIAGNOSES: 1. Severe left carotid stenosis. 2. Recurrent transient ischemic attacks. TITLE OF OPERATION: Left carotid endarterectomy. DESCRIPTION OF OPERATION: After the satisfactory accomplishment of general anesthesia, the patient's left neck was prepped and draped in sterile fashion. A standard left carotid incision was made along the anterior border of the sternomastoid muscle. The incision was carried down through the subcutaneous tissues to expose the left common carotid artery. The vessel was dissected free from the surrounding tissues and looped with a vessel loop. The dissection was carried distally to expose the internal carotid artery and the external carotid artery and its branches. Care was taken to identify and preserve all nerve structures in the region. Systemic heparin was given through a central vein canula for the purposes of anticoagulation. The common, external, and internal carotid arteries were briefly crossclamped. A long incision was made in the common carotid artery and carried distally through the bifurcation and well up into the internal carotid artery. A severely obstructing, ulcerated, fragile, and unstable plaque was located at the carotid bifurcation, extending well up into the internal carotid artery distally. The plaque was carefully removed using standard endarterectomy techniques. Following this, the intima of the distal internal carotid artery was tacked to the adventitia of the proximal carotid artery with a running 7-0 Prolene suture. Once this was done, an indwelling shunt was placed in the distal carotid artery distally and the internal carotid artery proximally, thereby re-establishing blood flow to the left side of the brain for the remainder of the case. The rest of the endarterectomy was carefully completed. The surface of the vessel was smoothed and all loose debris was carefully removed. Heparinized saline flushes were routinely employed. A previously constructed Dacron patch was brought into the operative field and used to close the arteriotomy site. Running 7-0 Prolene was used for this patch closure. Prior to completing the closure, the shunt was removed and the vessel was flushed free from all air and debris. Once the sutures were tied, excellent pulses were located within the patch area and beyond. Protamine was given to counteract the effects of the heparin. All bleeding points were carefully cauterized, ligated, or oversewn. The wound was again thoroughly irrigated with antibiotic solution and then closed in layers after protamine had been given to reverse the affects of the heparin. A 2-0 Vicryl was used for the deep layers and running 2-0 Vicryl was used for the superficial subcutaneous tissues and the skin was closed with a Monocryl subcuticular stitch. The patient tolerated the procedure well and was returned to the Intensive Care Unit in good condition. MD SANTOS Sanderson/MOSES /[id number]
--- NOTE | 2018-08-12 01:03 | NUR ---
AT 0050 PATIENT HAS NOT URINATED SINCE ARRIVING TO THE ICU YESTERDAY AFTERNOON. BLADDER MILDLY DISTENDED AND TENDER. PATIENT HAVING THE URGE TO URINATE BUT UNABLE. USED A BLADDER SCAN AND RESULTS ARE GREATER THAN 200ML. CALLED ATTENDING AND SPOKE TO SUKUMAR ORONA ADVERTISING SOLICITOR FOR [employer] MADE HER AWARE OF SITUATION AT HAND, ADMITTING DX AND PROCEDURE THAT WAS PERFORMED YESTERDAY AND HX OF PROSTATE ENLARGEMENT. ORDER TO PLACE AND INDWELLING WARE CATHETER AND AT NURSE DISCRETION MAY REMOVE
--- NOTE | 2018-08-12 01:10 | NUR ---
PLACED AN 18G INDWELLING WARE CATHETER PATIENT HAD SOME MILD DISCOMFORT. IMMEDIATE RETURN OF LIGHT AVILA URINE OF 800CC AFTER INSERTION. URINE WAS VERY CLOUDY AND WITH A FOUL SMELLING ODOR. CALLED SUKUMAR MCLEAN NP OF DR BARRERA TO INFORM HER AND IF A UA IS NEEDED. ORDER TO SEND FOR A UA AND URINE CULTURE IF INDICATED
[2018-08-12] MEDS: HYDROCODONE/APAP 5MG-325MG TAB PO PRN ×5 (02:54→21:42)
--- NOTE | 2018-08-12 03:18 | NUR ---
PATIENT CONTINUES TO BE VERY RESTLESS AND CONTINUES TO HAVE DISCOMFORT TO THE LEFT SIDE OF HIS NECK FROM POST ENDARTERECTOMY. EDUCATED PATIENT MULTIPLE TIMES THAT THE AREA WILL BE SORE AND THAT THE ICE PACK WILL HELP RELIEVE THE DISCOMFORT TO KEEP IT ON SITE AT ALL TIMES, ALONG WITH EDUCATING PATIENT THAT THE SORENESS AND/OR DISCOMFORT WILL CONTINUE FOR A FEW DAYS BUT IF CONTINUES TO HAVE INTERMITTENT SEVERE DISCOMFORT THAT I WILL CALL ATTENDING TO MAKE HIM AWARE. PATIENT STATES NO NEED AT THIS TIME BUT WILL INFORM THE NURSE IF WARRANTED. WILL CONTINUE TO ASSESS PATIENT AND PATIENTS PAIN LEVEL AND KEEP HIM COMFORTABLE POSSIBLE
--- NOTE | 2018-08-12 03:55 | NUR ---
Patient awaken and needing something for his discomfort and morphine prn med given and after med given patient asked if he could have his [place], informed him that I could not give both at the same time however, I will continue to monitor him and if his pain has not been relieved I will give him something else for his pain level.
[2018-08-12 04:27] LABS: BASOPHILS % 0.3 % (0.0-1.0); EOSINOPHILS # (AUTO) 0.1 (0.0-0.4); EOSINOPHILS % 1.3 % (0.0-6.0); HEMOGLOBIN 13.1 g/dL (14.0-18.0); LYMPHOCYTES # (AUTO) 1.6 (1.0-3.2); LYMPHOCYTES % 15.8 % (18.0-39.1); MEAN CORPUSCULAR HEMOGLOBIN 27.8 pg (28-32); MEAN CORPUSCULAR VOLUME 86.9 fL (81-99); MONOCYTES # (AUTO) 1.3 (0.2-0.8); MONOCYTES % 13.1 % (4.4-11.3); NEUTROPHILS # (AUTO) 7.1 (2.1-6.9); NEUTROPHILS % 68.9 % (38.7-80.0); PLATELET COUNT 226 x10e3/uL (140-360); RED BLOOD COUNT 4.72 x10e6/uL (4.3-5.7); RED CELL DISTRIBUTION WIDTH 13.2 % (11.7-14.4)
--- NOTE | 2018-08-12 04:29 | NUR ---
Patient sleeping and does not appear to be in any pain nor discomfort. FLACC pain scale used and pain level is 0. Will continue to monitor
[2018-08-12 04:32] LABS: CLARITY,URINE HAZY (CLEAR); COLOR,URINE YELLOW (YELLOW)
[2018-08-12 04:33] LABS: LEUKOCYTE ESTERASE ,URINE NEGATIVE (NEGATIVE); NITRITE,URINE NEGATIVE (NEGATIVE)
[2018-08-12 04:34] LABS: BILIRUBIN,URINE NEGATIVE (NEGATIVE); KETONES,URINE TRACE (NEGATIVE); PROTEIN,URINE DIPSTICK NEGATIVE (NEGATIVE); URINE UROBILINOGEN 1 mg/dL (0.2 - 1)
[2018-08-12 04:41] LABS: EPITHELIAL CELLS,URINE FEW /LPF; RBC,URINE 21-50 /HPF (0-5); WBC,URINE (MAN) 0-5 /HPF (0-5)
[2018-08-12 04:47] LABS: ALANINE AMINOTRANSFERASE 40 IU/L (0-55); ALBUMIN 2.5 g/dL (3.5-5.0); ALBUMIN/GLOBULIN RATIO 0.8 (0.8-2.0); ALKALINE PHOSPHATASE 57 IU/L (40-150); ANION GAP 8.7 mmol/L (8-16); BLOOD UREA NITROGEN 13 mg/dL (7-26); BUN/CREATININE RATIO 17 (6-25); CALCIUM 7.8 mg/dL (8.4-10.2); CARBON DIOXIDE 23 mmol/L (22-29); CHLORIDE 109 mmol/L (98-107); CREATININE, SERUM 0.76 mg/dL (0.72-1.25); EST GLOMERULAR FILTRATION RATE > 60 ML/MIN (60-); GLUCOSE 132 mg/dL (74-118); POTASSIUM 3.7 mmol/L (3.5-5.1); SODIUM 137 mmol/L (136-145)
[2018-08-12] MEDS: SODIUM CHLORIDE 0.9% 1000ML 1,000 ML IV SCH (04:47)
[2018-08-12] MEDS: INSULIN REGULAR, HUMAN 100 UNIT/1 ML 3ML VIAL SQ SCH ×5 (05:02→23:40)
[2018-08-12] MEDS: ASPIRIN 325 MG TAB EC PO SCH (08:29)
[2018-08-12] MEDS: ENOXAPARIN SOD INJ 40 MG/0.4 ML SYR SC SCH (08:29)
[2018-08-12] MEDS: FAMOTIDINE 20 MG TAB PO SCH ×2 (08:29→16:56)
[2018-08-12] MEDS ORDERED: CHLORASEPTIC SPRAY 177 ML BTL MM PRN ×2 (12:00)
--- NOTE | 2018-08-12 14:12 | Progress Note ---
DATE: SUBJECTIVE: The patient had some incisional pain. He also had difficulty urinating. A Mercer catheter had to be placed. PHYSICAL EXAMINATION: VITAL SIGNS: The patient is afebrile. HEENT: Shows no facial swelling or erythema. LYMPHATIC: Shows no submandibular, cervical, or supraclavicular adenopathy. CARDIAC: Reveals regular rate and rhythm with normal S1 and S2. There are no murmurs or rubs heard. LUNGS: Auscultation of lungs shows clear breath sounds bilaterally. There is no wheezing. ABDOMEN: Soft, nontender. There is no rebound or guarding. EXTREMITIES: Show no leg edema or calf tenderness. IMPRESSION: 1. Urinary retention related to prostatic hypertrophy. 2. Amaurosis fugax. 3. Recent carotid endarterectomy. 4. Diabetes. 5. Hypertension. PLAN: 1. The patient will have the Mercer catheter removed with a voiding trial. 2. Limit narcotics, which could be making the urinary retention worse. 3. Begin Flomax. 4. Continue pain control. 5. Monitor blood sugars. Butch Staton MD [facility]/MODL /[id number]
[2018-08-12] MEDS ORDERED: TAMSULOSIN HCL 0.4 MG CAP PO ONE (14:30)
--- NOTE | 2018-08-12 15:22 | Progress Note ---
ABIGAIL/AJAYL /[id number]
[2018-08-12] MEDS: ATORVASTATIN 40 MG TAB PO SCH (20:54)
[2018-08-12] MEDS: JAYLIN PO SCH (20:54)
--- NOTE | 2018-08-12 21:42 | NUR ---
Chepachet given for c/o pain.
--- NOTE | 2018-08-12 23:35 | NUR ---
Restoril given for sleep per request.
[2018-08-13] VITALS (14 sets, daily range): BP systolic 102–138; BP diastolic 70–101
[2018-08-13 04:51] LABS: BASOPHILS % 0.4 % (0.0-1.0); EOSINOPHILS # (AUTO) 0.2 (0.0-0.4); EOSINOPHILS % 2.5 % (0.0-6.0); HEMATOCRIT 41.9 % (38.2-49.6); HEMOGLOBIN 13.4 g/dL (14.0-18.0); LYMPHOCYTES # (AUTO) 1.8 (1.0-3.2); LYMPHOCYTES % 21.4 % (18.0-39.1); MEAN CORPUSCULAR HEMOGLOBIN 28.2 pg (28-32); MONOCYTES # (AUTO) 1.1 (0.2-0.8); MONOCYTES % 13.6 % (4.4-11.3); NEUTROPHILS % 61.4 % (38.7-80.0); PLATELET COUNT 206 x10e3/uL (140-360); RED BLOOD COUNT 4.76 x10e6/uL (4.3-5.7); RED CELL DISTRIBUTION WIDTH 12.9 % (11.7-14.4)
[2018-08-13 05:11] LABS: ANION GAP 11.4 mmol/L (8-16); BLOOD UREA NITROGEN 9 mg/dL (7-26); BUN/CREATININE RATIO 11 (6-25); CALCIUM 8.8 mg/dL (8.4-10.2); CARBON DIOXIDE 27 mmol/L (22-29); CHLORIDE 105 mmol/L (98-107); CREATININE, SERUM 0.81 mg/dL (0.72-1.25); EST GLOMERULAR FILTRATION RATE > 60 ML/MIN (60-); GLUCOSE 147 mg/dL (74-118); POTASSIUM 3.4 mmol/L (3.5-5.1); SODIUM 140 mmol/L (136-145)
[2018-08-13] MEDS: INSULIN REGULAR, HUMAN 100 UNIT/1 ML 3ML VIAL SQ SCH ×2 (06:00→12:00)
[2018-08-13] MEDS: FAMOTIDINE 20 MG TAB PO SCH (07:54)
[2018-08-13] MEDS: ASPIRIN 325 MG TAB EC PO SCH (09:14)
[2018-08-13] MEDS: ENOXAPARIN SOD INJ 40 MG/0.4 ML SYR SC SCH (09:14)
[2018-08-13] MEDS ORDERED: ASPIRIN ENTERI325 MG PO (13:16)
[2018-08-13] MEDS ORDERED: Atorvastatin PO (13:16)
--- NOTE | 2018-08-13 14:10 | NUR ---
PT DISCHARGED AT THIS TIME RX GIVEN EDUCATION AND F/U INSTRUCTIONS. IV DC'D SECURED WITH 4X4 GAUZE AND TAPE. NO QUESTIONS VERBALIZED.
--- NOTE | 2018-08-13 15:41 | Progress Note ---
DATE: Pulmonary Critical Care Progress Note SUBJECTIVE: The patient feels better. He is urinating on his own after the catheter has been removed. He has some mild incisional pain. PHYSICAL EXAMINATION: VITAL SIGNS: The patient is afebrile. The blood pressure is 119/88 and the respiratory rate is 12. The saturation is 94% on room air. HEENT: Shows no facial swelling or erythema. CARDIAC: Reveals regular rate and rhythm with normal S1, S2. There are no murmurs or rubs heard. LUNGS: Auscultation of lungs reveals rhonchorous breath sounds bilaterally. There is no wheezing. ABDOMEN: Soft, nontender. There is no rebound or guarding. EXTREMITIES: Show no leg edema or calf tenderness. IMPRESSION: 1. Status post recent carotid endarterectomy. 2. Amaurosis fugax. 3. Urinary retention. 4. Prostatic hypertrophy. 5. Diabetes. PLAN: 1. The patient will be discharged home today. 2. Tylenol as needed for pain. 3. Local wound care. Btuch Staton MD [facility]/AJAYL /[id number]
--- NOTE | 2018-08-14 06:55 | Discharge Summary ---
ADMISSION DIAGNOSES: 1. Transient ischemic attack. 2. Hyperlipidemia. 3. Type 2 diabetes. 4. Benign prostatic hypertrophy. DISCHARGE DIAGNOSES: 1. Rule out transient ischemic attack. 2. Hyperlipidemia. 3. Type 2 diabetes. 4. Benign prostatic hypertrophy. 5. Carotid endarterectomy. 6. Left carotid stenosis. PAST MEDICAL HISTORY: The patient has a history of anemia, type 2 diabetes, BPH, and herpes type 2. PAST SURGICAL HISTORY: UroLift and bilateral cataract surgery. FAMILY HISTORY: The patient's mom and brother have diabetes. The patient's dad and brother had a stroke. SOCIAL HISTORY: The patient admits to occasional alcohol use. HOSPITAL COURSE: 67-year-old male, was watching TV around 7:30 p.m. yesterday, when he noticed the vision in his left eye changed. He started seeing black spots. It lasted about 1 minute, then resolved. About 2 minutes later, it happened again. The episode lasted about 1 minute again. He denied dizziness, fall, weakness, trouble speaking, and trouble swallowing. On admission, the patient had a CT of the brain that showed age-indeterminate lacunar infarct in anterior limb of the right internal capsule, mild supratentorial white matter microvascular ischemic changes, and old lacunar infarcts. MRI was done that showed no acute abnormalities. The patient then had CTA of the neck and brain, which showed moderate left carotid bulb calcified plaque greater than 70% stenosis, moderate right carotid bulb calcified plaque without significant stenosis. 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 Reconstitution in the distal right V4 segment. Calcified plaque in the right proximal V4 segment is suspected. The cervical right vertebral artery is diminutive throughout proximal to the occlusion. Bilateral carotid siphon calcifications without significant stenosis. Neuro consulted, Ophthalmology was consulted, and CV Surgery was consulted. The patient then had a carotid endarterectomy on 08/11/2018 by CV Surgery. The patient tolerated the procedure well. The patient will discharge home and follow up with CV Surgery in two weeks as well as primary care in one week. He will discharge home with Lipitor, aspirin, and other home medications. The patient understands discharge instructions and agrees to plan. Vital signs stable, the patient is afebrile. Tahira Jaime NP [facility]/MODL /[id number]
== END 2018-08-13 14:38 | disposition home or self-care (01) | DRG 38 ==
LOC: ER 20:09 → ERHOLD 23:04 → MED/SURG2 08-09 03:00 → OBSVTOIN 08-10 15:46 → ICU 08-11 13:33
PROVIDERS: ADMIT Internal Medicine; ATTEND Internal Medicine
PROC: 03UL0JZ Supplement Left Internal Carotid Artery with Synthetic Substitute, Open Approach (ICD-10-PCS; 2018-08-11)
PROC: 03CL0ZZ Extirpation of Matter from Left Internal Carotid Artery, Open Approach (ICD-10-PCS; principal; 2018-08-11 11:12)
DX: I65.22 Occlusion and stenosis of left carotid artery (principal); G45.3 Amaurosis fugax; E78.5 Hyperlipidemia, unspecified; E11.9 Type 2 diabetes mellitus without complications; N40.1 Benign prostatic hyperplasia with lower urinary tract symptoms; R33.8 Other retention of urine; D64.9 Anemia, unspecified; B00.9 Herpesviral infection, unspecified; R19.7 Diarrhea, unspecified; D72.829 Elevated white blood cell count, unspecified; G47.00 Insomnia, unspecified; Z28.21 Immunization not carried out because of patient refusal; Z79.82 Long term (current) use of aspirin; Z79.84 Long term (current) use of oral hypoglycemic drugs
CPT/HCPCS: 36415; 70450; 70496; 70498; 70551; 71046; 80048; 80053; 80061; 81001; 82550; 82553; 82948; 83036; 83690; 83735; 83880; 84439; 84443; 84484; 85025; 85610; 85651; 85730; 86140; 86850; 86900; 86920; 87040; 87086; 87493; 88304; 88311; 93005; 93306; 93880; 97139; 99284; C1768; G0378; J0690; J1644; J1650; J2001; J2250; J2270; J2405; J2720; J7030; J7040; J7512; Q9967